=== PATIENT | male | born 1940 | race Caucasian/White ===

== ENCOUNTER 2016-10-11 11:05 | Inpatient (IN) | payer OTHER ==
[~2016-10-11] VITALS: Ht 182.9 cm; Wt 102.6 kg
[2016-10-11] MEDS ORDERED: SODIUM CHLORIDE 0.9% 1,000 ML IVB ONE (14:38)
[2016-10-11] MEDS ORDERED: ALBUTEROL SULF 2.5 MG/0.5ML(0.5%) NEB SOLN NEB PRN (16:45)
[2016-10-11] MEDS ORDERED: PROMETHAZINE HCL 25 MG/ML 1ML IV PRN (16:45)
[2016-10-11] MEDS ORDERED: ACETAMINOPHEN 500 MG TAB PO PRN (16:45)
[2016-10-11] MEDS ORDERED: MORPHINE SULF INJ 2 MG/ML SYRINGE 1ML IV PRN ×2 (16:45)
[2016-10-11] MEDS ORDERED: HYDROcodone-ACET 5/325MG TAB PO PRN (16:45)
[2016-10-11] MEDS ORDERED: TEMAZEPAM 15 MG CAP PO PRN (16:45)
[2016-10-11] MEDS ORDERED: NITROGLYCERIN 0.4 MG SL TAB SL PRN (16:45)
[2016-10-11] MEDS ORDERED: LACTULOSE 20Gm/30ML SOLN PO PRN (16:45)
[2016-10-11] MEDS ORDERED: LORazepam 0.5 MG TAB PO PRN (16:45)
[2016-10-11] MEDS: ALBUTEROL SULF 2.5 MG/0.5ML(0.5%) NEB SOLN NEB SCH (18:00)
[2016-10-11] MEDS: SODIUM CHLORIDE 0.9% 1,000 ML IV SCH (18:17)
[2016-10-11 19:04] LABS: Partial Thromboplastin Time 27.3 sec (22.64-33.71); Prothrombin Time 11.9 sec (9.37-12.3)
[2016-10-11 19:06] LABS: Basophils # (auto) 0 uL; Basophils % (auto) 0.2 % (0.0-2.0); Eosinophils # (auto) 0.1 uL; Eosinophils % (auto) 1.3 % (0.0-7.0); Hematocrit 42.6 % (41.0-53.0); Hemoglobin 13.8 g/dL (13.5-17.5); Lymphocytes # (auto) 1.6 uL; Lymphocytes % (auto) 14.7 % (10.0-50.0); Mean Corpuscular Hemoglobin 29.1 pg (28.0-32.0); Mean Corpuscular Hgb Conc. 32.5 g/dL (32.0-36.0); Mean Corpuscular Volume 89.6 fL (80.0-100.0); Mean Platelet Volume 11.2 fL (7.4-10.4); Monocytes # (auto) 0.7 uL; Monocytes % (auto) 6.9 % (0.0-12.0); Neutrophils # (auto) 8.2 uL; Neutrophils % (auto) 76.9 % (37.0-80.0); Platelet Count (auto) 198 10^3/uL (140-450); Red Cell Distribution Width 15.3 % (11.6-16.0); White Blood Cell 10.7 10^3/uL (4.4-10.8)
[2016-10-11 19:13] LABS: INR 1.16 (0.9-1.15)
[2016-10-11 19:18] LABS: Albumin 3.5 g/dL (3.4-5.0); BUN/Creatinine Ratio 16.7; Bilirubin, Total 0.7 mg/dL (0.2-1.0); Calcium 8.4 mg/dL (8.5-10.1); Potassium 3.4 mmol/L (3.5-5.1); Total Protein 6.7 g/dL (6.4-8.2)
[2016-10-11 20:10] VITALS: BP 148/92
[2016-10-11 22:00] VITALS: BP 148/92
[2016-10-12] MEDS: ALBUTEROL SULF 2.5 MG/0.5ML(0.5%) NEB SOLN NEB SCH ×4 (00:21→19:09)
[2016-10-12] MEDS: SODIUM CHLORIDE 0.9% 1,000 ML IV SCH ×3 (02:33→22:07)
[2016-10-12 05:00] VITALS: BP 147/94
[2016-10-12 09:00] VITALS: BP 147/97
[2016-10-12] MEDS: OXYCODONE W/ ACETAMINOPHEN 5/325MG TABLET PO PRN ×2 (10:08→18:00)
[2016-10-12] MEDS ORDERED: PERCOT PO (10:11)
[2016-10-12] MEDS ORDERED: TAM04C PO (10:11)
[2016-10-12] MEDS ORDERED: IPRATROPIUM BROM 0.5 MG/2.5ML INH SOL NEB PRN (13:15)
[2016-10-12 13:20] VITALS: BP 150/89
[2016-10-12 16:32] VITALS: BP 151/98
[2016-10-12] MEDS ORDERED: IOHEXOL 350 MG/ML 100ML IJ ONE (16:34)
[2016-10-12] MEDS: IPRATROPIUM BROM 0.5 MG/2.5ML INH SOL NEB SCH (19:09)
[2016-10-12 22:20] VITALS: BP 142/102
[2016-10-13 05:48] VITALS: BP 155/96
[2016-10-13] MEDS: ALBUTEROL SULF 2.5 MG/0.5ML(0.5%) NEB SOLN NEB SCH ×4 (05:52→12:00)
[2016-10-13] MEDS: IPRATROPIUM BROM 0.5 MG/2.5ML INH SOL NEB SCH ×3 (05:52→18:00)
[2016-10-13] MEDS ORDERED: IOHEXOL 350 MG/ML 100ML IJ ONE (07:30)
[2016-10-13 08:00] VITALS: BP 103/59
[2016-10-13 09:21] VITALS: BP 153/91
[2016-10-13 13:03] VITALS: BP 153/91
[2016-10-13 13:41] VITALS: BP 140/82
== END 2016-10-13 18:00 | disposition home or self-care (01) | DRG 563 ==
LOC: ER 11:11 → TELE 11:12 → TELE-EAST 19:46
PROVIDERS: ADMIT Internal Medicine; ATTEND Internal Medicine
PROC: 2W3QX1Z Immobilization of Right Lower Leg using Splint (ICD-10-PCS; principal; 2016-10-13)
DX: S82.421A Displaced transverse fracture of shaft of right fibula, initial encounter for closed fracture (principal); S82.101A Unspecified fracture of upper end of right tibia, initial encounter for closed fracture; W01.0XXA Fall on same level from slipping, tripping and stumbling without subsequent striking against object, initial encounter; J44.9 Chronic obstructive pulmonary disease, unspecified; I10 Essential (primary) hypertension; Z88.4 Allergy status to anesthetic agent; Z88.5 Allergy status to narcotic agent; Z87.891 Personal history of nicotine dependence
CPT/HCPCS: 36415; 36600; 71010; 71275; 73562; 73590; 80053; 82805; 83735; 85025; 85049; 85610; 85730; 93005; 93306; 94640